=== PATIENT | male | born 1990 | race Asian ===

== ENCOUNTER 2021-03-17 17:41 | Emergency (ER) | payer BC ==
--- NOTE | 2021-03-17 19:51 | ER ---
Nurse's Notes [facility] Name: Elizabeth Vicente Age: 30 yrs Sex: Male : 1990 Arrival Date: 03/17/2021 Time: 17:47 Bed 16 Private MD: Diagnosis: Flank Pain, Right Presentation: 03/17 18:24 Chief complaint: Patient states: Pain to the left flank since Friday, Denies N/V/D. aj1 Denies dysuria, urinary frequency. Denies fever. Coronavirus screen: Client denies travel out of the [place] in the last 14 days. At this time, the client does not indicate any symptoms associated with coronavirus-19. Ebola Screen: Patient denies travel to an Ebola-affected area in the 21 days before illness onset. Initial Sepsis Screen: Does the patient meet any 2 criteria? No. Patient's initial sepsis screen is negative. Does the patient have a suspected source of infection? No. Patient's initial sepsis screen is negative. Risk Assessment: Do you want to hurt yourself or someone else? Patient reports no desire to harm self or others. Onset of symptoms was 2020. 18:24 Method Of Arrival: Ambulatory aj1 18:24 Acuity: TRACY 3 aj1 Triage Assessment: 18:27 General: Appears in no apparent distress. comfortable, Behavior is calm, cooperative, aj1 appropriate for age. Pain: Complains of pain in anterior aspect of right lateral abdomen and posterior aspect of right lateral abdomen Pain currently is 8 out of 10 on a pain scale. Neuro: Level of Consciousness is awake, alert, obeys commands, Oriented to person, place, time, situation. Cardiovascular: Patient's skin is warm and dry. Respiratory: Airway is patent Respiratory effort is even, unlabored, Respiratory pattern is regular, symmetrical. Historical: - Allergies: 18:27 No Known Allergies; aj1 - Home Meds: 18:27 None [Active]; aj1 - PMHx: 18:27 None; aj1 - PSHx: 18:27 None; aj1 - Immunization history:: Client reports receiving the 2nd dose of the Covid vaccine, Flu vaccine is not up to date. - Social history:: Smoking status: Patient/guardian denies using tobacco. Screenin:14 Abuse screen: Denies threats or abuse. Denies injuries from another. Nutritional iw screening: No deficits noted. Tuberculosis screening: No symptoms or risk factors identified. Fall Risk None identified. Assessment: 21:13 General: Appears in no apparent distress. Behavior is calm, cooperative. Pain: iw Complains of pain in posterior aspect of right lateral abdomen and anterior aspect of right lateral abdomen. Neuro: Level of Consciousness is awake, alert, obeys commands, Oriented to person, place, time, situation, Moves all extremities. Full function. Cardiovascular: Patient's skin is warm and dry. Respiratory: Respiratory effort is even, unlabored, Respiratory pattern is regular, symmetrical. GI: Abdomen is flat, non-distended, Abd is soft and non tender X 4 quads. Reports. Derm: Musculoskeletal: Range of motion: intact in all extremities. 22:27 Reassessment: Patient appears in no apparent distress at this time. Patient and/or zb family updated on plan of care and expected duration. Pain level reassessed. Patient is alert, oriented x 3, equal unlabored respirations, skin warm/dry/pink. IV fluid infusing. patient awaiting results. 22:49 Reassessment: pt ambulated out gait even and steady. zb Vital Signs: 18:24 BP 111 / 81; Pulse 76; Resp 18; Temp 97.9; Pulse Ox 100% on R/A; Weight 68.04 kg (R); aj1 Height 5 ft. 10 in. (177.80 cm) (R); Pain 8/10; 22:27 BP 117 / 71; Pulse 66; Resp 16; Pulse Ox 100% on R/A; zb 18:24 Body Mass Index 21.52 (68.04 kg, 177.80 cm) aj1 ED Course: 17:47 Patient arrived in ED. as 18:26 Triage completed. aj1 18:27 Arm band placed on Patient placed in waiting room, Patient notified of wait time. aj1 21:03 Jeri Oquendo RN is Primary Nurse. iw 21:04 Niranjan Meek MD is Attending Physician. 7 21:14 Patient has correct armband on for positive identification. iw 21:14 No provider procedures requiring assistance completed. Patient did not have IV access iw during this emergency room visit. 21:34 Inserted saline lock: 20 gauge in left antecubital area, using aseptic technique. Blood dh4 collected. 22:28 Primary Nurse role handed off by Jeri Oquendo RN zizabel 22:28 Jazmin Rose RN is Primary Nurse. zb 22:33 Chucky Azevedo MD is Referral Physician. [facility] 22:34 Referral Physician role handed off by Chucky Azevedo MD [facility] 22:49 IV discontinued, intact, bleeding controlled, No redness/swelling at site. Pressure zb dressing applied. Administered Medications: 22:17 Drug: NS 0.9% 1000 ml Route: IV; Rate: 1000 ml; Site: left antecubital; zb 22:50 Follow up: Response: No adverse reaction; IV Status: Completed infusion; IV Intake: zb 1000ml 22:18 Drug: TORadol (ketorolac) 30 mg Route: IVP; Site: left antecubital; zb 22:50 Follow up: Response: No adverse reaction; Pain is decreased zb Intake: 22:50 IV: 1000ml; Total: 1000ml. zb Outcome: 19:51 Patient left the ED. iw 22:34 Discharge ordered by . [facility] 22:48 Discharged to home ambulatory. zb 22:48 Condition: stable 22:48 Discharge instructions given to patient, Instructed on discharge instructions, follow up and referral plans. Demonstrated understanding of instructions, follow-up care. 22:50 Patient left the ED. zb Signatures: Nida Briggs RN RN Hayley Rose as Jeri Oquendo, GWEN HIDALGO Donald Lunsford 4 Niranjan Meek MD MD Jazmin Bran RN RN izabel
[2021-03-17 19:59] VITALS: TEMP 97.9; O2SAT 100
[2021-03-17 21:47] LABS: Absolute Lymphocytes (CBC) 4.5 K/uL (0.7-4.9); Hematocrit 37.4 % (39.6-49.0); MPV 7.6 fL (7.6-11.3); RBC Red Blood Cell Count 4.82 M/uL (4.33-5.43)
[2021-03-17 21:56] LABS: Urine Blood Negative (Negative); Urine Glucose Negative (Negative); Urine Protein Negative (Negative); Urine Specific Gravity 1.025 (1.005-1.030); Urine pH 5.5 (5.0-7.0)
[2021-03-17 22:06] LABS: ALT/SGPT 22 U/L (12-78); AST/SGOT 16 U/L (15-37); Albumin 4.2 g/dL (3.4-5.0); Alkaline Phosphatase 40 U/L (45-117); BUN Blood Urea Nitrogen 21 mg/dL (7-18); Bicarbonate 28 mmol/L (21-32); Bilirubin Direct 0.1 mg/dL (0-0.2); Bilirubin Total 0.5 mg/dL (0.2-1.0); Glucose Level 90 mg/dL (74-106); Lipase 90 U/L (73-393); Potassium 3.5 mmol/L (3.5-5.1); Protein, Total 7.8 g/dL (6.4-8.2); Sodium Level 138 mmol/L (136-145)
[2021-03-17] MEDS ORDERED: NA CHLORIDE 0.9% 1,000 ML ONE (22:31)
[2021-03-17] MEDS ORDERED: KETOROLAC 30 MG/ML INJ ONE (22:31)
--- NOTE | 2021-03-17 22:35 | EDPHYS ---
Physician Documentation [facility] Name: Elizabeth Vicente Age: 30 yrs Sex: Male : 1990 Arrival Date: 03/17/2021 Time: 17:47 Bed 16 Private MD: ED Physician Niranjan Meek HPI: 03/17 21:17 This 30 yrs old Male presents to ER via Ambulatory with complaints of Flank Pain, mh7 InQuicker [id number]. 21:17 The patient complains of pain in the right flank. The pain radiates to the abdomen. mh7 Onset: The symptoms/episode began/occurred 3 day(s) ago. Modifying factors: The symptoms are alleviated by nothing. the symptoms are aggravated by nothing. Associated signs and symptoms: Pertinent negatives: diarrhea, dizziness, dysuria, fever, urinary frequency, headache, hematuria, nausea, pain radiating to the lower extremities, vomiting. Severity of pain: At its worst the pain was moderate yesterday, in the emergency department the pain is unchanged. Historical: - Allergies: 18:27 No Known Allergies; aj1 - Home Meds: 18:27 None [Active]; aj1 - PMHx: 18:27 None; aj1 - PSHx: 18:27 None; aj1 - Immunization history:: Client reports receiving the 2nd dose of the Covid vaccine, Flu vaccine is not up to date. - Social history:: Smoking status: Patient/guardian denies using tobacco. ROS: 21:17 Constitutional: Negative for fever, chills, and weight loss, Eyes: Negative for injury, mh7 pain, redness, and discharge, ENT: Negative for injury, pain, and discharge, Neck: Negative for injury, pain, and swelling, Cardiovascular: Negative for chest pain, palpitations, and edema, Respiratory: Negative for shortness of breath, cough, wheezing, and pleuritic chest pain, : Negative for injury, bleeding, discharge, and swelling, MS/Extremity: Negative for injury and deformity, Skin: Negative for injury, rash, and discoloration, Neuro: Negative for headache, weakness, numbness, tingling, and seizure, Psych: Negative for depression, anxiety, suicide ideation, homicidal ideation, and hallucinations, Allergy/Immunology: Negative for hives, rash, and allergies, Endocrine: Negative for neck swelling, polydipsia, polyuria, polyphagia, and marked weight changes, Hematologic/Lymphatic: Negative for swollen nodes, abnormal bleeding, and unusual bruising. Exam: 21:17 Constitutional: This is a well developed, well nourished patient who is awake, alert, mh7 and in no acute distress. Head/Face: Normocephalic, atraumatic. Eyes: Pupils equal round and reactive to light, extra-ocular motions intact. Lids and lashes normal. Conjunctiva and sclera are non-icteric and not injected. Cornea within normal limits. Periorbital areas with no swelling, redness, or edema. Neck: Trachea midline, no thyromegaly or masses palpated, and no cervical lymphadenopathy. Supple, full range of motion without nuchal rigidity, or vertebral point tenderness. No Meningismus. Chest/axilla: Normal chest wall appearance and motion. Nontender with no deformity. No lesions are appreciated. Cardiovascular: Regular rate and rhythm with a normal S1 and S2. No gallops, murmurs, or rubs. Normal PMI, no JVD. No pulse deficits. Respiratory: Lungs have equal breath sounds bilaterally, clear to auscultation and percussion. No rales, rhonchi or wheezes noted. No increased work of breathing, no retractions or nasal flaring. Abdomen/GI: Soft, non-tender, with normal bowel sounds. No distension or tympany. No guarding or rebound. No evidence of tenderness throughout. Skin: Warm, dry with normal turgor. Normal color with no rashes, no lesions, and no evidence of cellulitis. MS/ Extremity: Pulses equal, no cyanosis. Neurovascular intact. Full, normal range of motion. Neuro: Awake and alert, GCS 15, oriented to person, place, time, and situation. Cranial nerves II-XII grossly intact. Motor strength 5/5 in all extremities. Sensory grossly intact. Cerebellar exam normal. Normal gait. Psych: Awake, alert, with orientation to person, place and time. Behavior, mood, and affect are within normal limits. 21:17 Back: normal spinal alignment noted, CVA tenderness, that is mild, is noted on the right, muscle spasm, is not present. Vital Signs: 18:24 BP 111 / 81; Pulse 76; Resp 18; Temp 97.9; Pulse Ox 100% on R/A; Weight 68.04 kg (R); aj1 Height 5 ft. 10 in. (177.80 cm) (R); Pain 8/10; 22:27 BP 117 / 71; Pulse 66; Resp 16; Pulse Ox 100% on R/A; zb 18:24 Body Mass Index 21.52 (68.04 kg, 177.80 cm) aj1 MDM: 22:31 Differential diagnosis: nephrolithiasis, pyelonephritis, UTI. Data reviewed: [facility] signs, nurses notes, lab test result(s), CBC, electrolytes, urinalysis. Data interpreted: Pulse oximetry: on room air is 100 %. Interpretation: normal. Counseling: I had a detailed discussion with the patient and/or guardian regarding: the historical points, exam findings, and any diagnostic results supporting the discharge/admit diagnosis, lab results, the need for outpatient follow up, to return to the emergency department if symptoms worsen or persist or if there are any questions or concerns that arise at home. Response to treatment: the patient's symptoms have markedly improved after treatment. Refusal of service: The patient/guardian displays adequate decision making capability and despite a detailed discussion of alternatives, benefits, risks, and consequences refuses: CT Scan. 22:34 Patient medically screened. [facility] 03/17 21:14 Order name: Basic Metabolic Panel; Complete Time: 22:27 [facility] 03/17 21:14 Order name: CBC with Diff; Complete Time: 22:27 [facility] 03/17 21:14 Order name: Hepatic Function; Complete Time: 22:27 [facility] 03/17 21:14 Order name: Lipase; Complete Time: 22:27 [facility] 03/17 21:56 Order name: Urine Dipstick-Ancillary [facility] 03/17 21:14 Order name: IV Saline Lock; Complete Time: 21:35 [facility] 03/17 21:14 Order name: Labs collected and sent; Complete Time: 21:35 [facility] 03/17 21:14 Order name: Urine Dipstick-Ancillary (obtain specimen); Complete Time: 21:56 [facility] Administered Medications: 22:17 Drug: NS 0.9% 1000 ml Route: IV; Rate: 1000 ml; Site: left antecubital; zb 22:50 Follow up: Response: No adverse reaction; IV Status: Completed infusion; IV Intake: zb 1000ml 22:18 Drug: TORadol (ketorolac) 30 mg Route: IVP; Site: left antecubital; zb 22:50 Follow up: Response: No adverse reaction; Pain is decreased zb Disposition: 03/17/21 22:34 Discharged to Home. Impression: Flank Pain, Right. - Condition is Stable. - Discharge Instructions: Flank Pain, [id number]. - Medication Reconciliation Form, Thank You Letter, Antibiotic Education, Prescription Opioid Use form. - Follow up: Private Physician; When: 1 - 2 days; Reason: Worsening of condition, Recheck today's complaints, Continuance of care, Re-evaluation by your physician. Follow up: Chucky Azevedo MD; When: As needed; Reason: Worsening of condition, Recheck today's complaints. - Problem is new. - Symptoms have improved. Signatures: Dispatcher [employer] [facility] Nida Briggs RN RN aj1 Jeri Oquendo RN RN iw Niranjan Meek MD MD 7 Jazmin Rose RN RN zb Corrections: (The following items were deleted from the chart) 19:51 19:51 03/17/2021 19:51 Patient left the facility after being seen by provider. Reason iw stated they are leaving due to unknown. 21:03 19:51 03/17/2021 19:51 Patient left the facility after being seen by provider. Reason iw stated they are leaving due to unknown. 21:52 21:15 [facility]CT.RAD.BRZ ordered. [facility] 22:34 22:34 03/17/2021 22:34 Discharged to Home. Impression: Flank Pain, Right. Condition is mh7 Stable. Forms are Medication Reconciliation Form, Thank You Letter, Antibiotic Education, Prescription Opioid Use. Follow up: Private Physician; When: 1 - 2 days; Reason: Worsening of condition, Recheck today's complaints, Continuance of care, Re-evaluation by your physician. Follow up: Chucky Azevedo; When: As needed; Reason: Worsening of condition, Recheck today's complaints. Problem is new. Symptoms have improved. [facility] 22:50 22:34 03/17/2021 22:34 Discharged to Home. Impression: Flank Pain, Right. Condition is zb Stable. Forms are Medication Reconciliation Form, Thank You Letter, Antibiotic Education, Prescription Opioid Use. Follow up: Private Physician; When: 1 - 2 days; Reason: Worsening of condition, Recheck today's complaints, Continuance of care, Re-evaluation by your physician. Problem is new. Symptoms have improved. mh7
[2021-03-17 22:56] VITALS: BP 117/71
== END 2021-03-17 22:50 | disposition home or self-care (01) ==
LOC: ER 17:41
DX: R10.9 Unspecified abdominal pain (principal)
CPT/HCPCS: 96361; 85025; 80048; 36415; 80076; 81003; 83690; 96374; 99283; J7030